=== PATIENT | female | born 1960 ===

== ENCOUNTER → 2021-01-10 | Outpatient (CLI) | payer OTHER ==
[~2021-01-10] MED LIST: Calcium 600 MG1 EACH PO; DICLOFENAC SOD100 G1 TOP; FISH OIL 1,2001 EACH PO; GABA300 PO; MULTI-DAY PLUS1 EAC1 PO; PANT40 PO; Prilosec Otc20 MG PO; TIZANIDINE HCL2 MG PO; TRAM50 PO; VITAMIN D350000 UNIT PO; Zoloft100 MG PO
== END | disposition home or self-care (01) ==
LOC: LAB SHORT 08:11 → LAB 08:11
DX: N88.8 Other specified noninflammatory disorders of cervix uteri (principal)
CPT/HCPCS: 88305